=== PATIENT | male | born 2000 | race Caucasian/White ===

== ENCOUNTER 2022-05-25 09:12 | Emergency (ER) | payer OTHER, SELFPAY ==
[2022-05-25 09:19] VITALS: BP 132/69; PULSE 78; RESP 14; TEMP 36.9; O2SAT 95
--- NOTE | 2022-05-25 09:29 | ED.EAR ---
HPI - Ear Problem General Chief complaint: Ear Stated complaint: Ear infection- tender to the touch Time Seen by Provider: 05/25/22 09:18 Source: patient Mode of arrival: Ambulatory History of Present Illness HPI Narrative: 21-year-old male daily smoker without chronic medical problems presents for evaluation of right ear pain worsening over the night. He denies any injury or trauma. He denies any fever or chills. He states his ear started hurting when he was wearing over the ear headphones playing video games and progressively worsened. He does occasionally use Q-tips but has not recently. He denies any bleeding or drainage. He denies any change in his ability to hear. He has had some nasal congestion, runny nose and sneezing. He is not taken anything for it thus far. He denies chest pain or shortness of breath. He has no nausea, vomiting or diarrhea. He denies any recent swimming Related Data Allergies Allergy/AdvReac Type Severity Reaction Status Date / Time No Known Drug Allergies Allergy Verified 05/25/22 09:26 Review of Systems Review of Systems Narrative: GENERAL: Denies chills, fatigue, malaise, fever, sweats. HEENT: See HPI RESPIRATORY: Denies dyspnea, cough, wheezing, hemoptysis, sputum. CARDIOVASCULAR: Denies chest pain, palpitations, orthopnea, edema, GASTROINTESTINAL: Denies nausea, vomiting, abdominal pain, diarrhea, constipation, melena. : Denies dysuria, frequency, incontinence, hematuria, urinary retention. MUSCULOSKELETAL: denies weakness, joint pain, or bony pain SKIN: Denies rash, skin lesions, or other NEUROLOGIC: Denies weakness, headache, numbness, change in speech, confusion, seizures, incoordination. PSYCHIATRIC: No concerning psychosocial issues. 12 point review of systems is negative except for those stated above Patient History Social History Smoking Status: Current every day smoker Smoking Status: Current every day smoker tobacco type: vaping alcohol intake frequency: holidays/special occasions only Substance Use Type: does not use Exam Narrative Exam Narrative: GEN: AOx3 and in mild distress EYES: Pupils are equal, round, and reactive to light and accommodation. Extraoccular muscles are intact bilaterally. There is no subconjunctival hemorrhage or exudate. ENT: R TM flat, clear, normal view of landmarks, no erythema/bulging/retraction or evidence of perforation. Clear post nasal drip CHEST: Lungs are clear to auscultation bilaterally and free of wheezes, rales, or rhonchi. Heart rate is regular rhythm, there are no murmurs, clicks, rubs, or gallops. There is no chest wall tenderness. ABD: Abdomen is soft and nontender. There is no guarding or rebound. Bowel sounds are normal in all 4 quadrants. There is no mass or organomegaly. EXT: Full painless ROM of all extremities with no loss of sensation or strength. SKIN: Warm, pink, and dry. No erythema or rash Initial Vital Signs Initial Vital Signs: Vital Signs Temperature 98.5 F 05/25/22 09:19 Pulse Rate 78 05/25/22 09:19 Respiratory Rate 14 05/25/22 09:19 Blood Pressure 132/69 05/25/22 09:19 Pulse Oximetry 95 05/25/22 09:19 Oxygen Delivery Method 05/25/22 09:19 Course Vital Signs Vital signs: Vital Signs - 8 hr 05/25/22 09:19 Temperature 98.5 F Pulse Rate 78 Respiratory Rate 14 Blood Pressure 132/69 Pulse Oximetry 95 Oxygen Delivery Method Room Air Discharge Plan Departure Patient Disposition: Home Clinical Impression: Acute otalgia Qualifiers: Laterality: right Qualified Code(s): H92.01 - Otalgia, right ear Activity Restrictions/Additional Instructions: *You have been diagnosed with [right ear pain, as we discussed no evidence of any infection that would benefit from the use of antibiotics] *What to do: *Please consider the use of [id number] anti-inflammatories on a schedule, antihistamines and decongestants such as Sharri D *Please follow up with your primary care provider in 2-3 days, call for an appointment. Let them know you were seen in the Emergency Department and that we ask that you be seen in follow up. We will electronically transmit a record of today's note if your PCP is in our system *If you do not have a primary care provider please contact the [facility] Resource line at [phone]. They will ask some questions about your medical history and help get you set up with a doctor in the community. *Return to Emergency Department if you should have any new, worsening or concerning symptoms
== END 2022-05-25 09:27 | disposition home or self-care (01) ==
PROVIDERS: Emergency Provider Emergency Medicine
DX: H92.01 Otalgia, right ear (principal)
CPT/HCPCS: 99281

== ENCOUNTER 2024-04-02 19:15 | Emergency (ER) | payer OTHER, SELFPAY ==
[2024-04-02 19:30] VITALS: BP 133/67; PULSE 88; RESP 16; TEMP 36.8; O2SAT 96; BMI 30.8
[2024-04-02 19:54] LABS: Add Manual Diff / Slide Review NO; Basophils Absolute Auto 0 /uL (0-100); Basophils Percent Auto 0.5 % (0-2); Eosinophils Absolute Auto 300 /uL (0-450); Eosinophils Percent Auto 2.9 % (2-4); Hematocrit 44.4 % (41-53); Hemoglobin 15.6 g/dL (13.5-17.5); Lymphocytes Absolute Auto 2300 /uL (1100-4500); Lymphocytes Percent Auto 22.6 % (25-40); Mean Corpuscular HGB Conc 35.2 % (30-36); Mean Corpuscular Hemoglobin 29.6 PG (26-34); Monocytes Absolute Auto 800 /uL (0-900); Neutrophils Absolute Auto 6800 /uL (1500-7000); Platelet Count 237 X10^3/uL (150-400); Red Blood Cell Count 5.28 X10^6/uL (4.5-5.9); Red Cell Distribution Width 13.7 % (11.6-14.8); White Blood Cell Count 10.3 X10^3/uL (4.5-11.0)
[2024-04-02 20:12] LABS: Alanine Aminotransferase 20 IU/L (<50); Albumin 4.8 g/dL (3.5-5.0); Albumin Globulin Ratio 1.4 (1.0-2.8); Alkaline Phosphatase 97 U/L (38-126); Aspartate Aminotransferase 25 IU/L (17-59); BUN Creatinine Ratio 21.1 (6-22); Bilirubin Total 0.6 mg/dL (0.2-1.3); Blood Urea Nitrogen 20 mg/dL (9-20); Calcium 9.2 mg/dL (8.4-10.2); Carbon Dioxide 27 mmol/L (22-32); Chloride 106 mmol/L (98-107); Estimated Glomerular Filt Rate > 60 mL/min (>60); Globulin 3.4 g/dL (1.7-4.1); Glucose 104 mg/dL (70-100); HEMOLYSIS 27 (0-50); Lipase 77 U/L (23-300); Potassium 4.3 mmol/L (3.4-5.1); Sodium 139 mmol/L (137-145); Total Protein 8.2 g/dL (6.3-8.2)
--- NOTE | 2024-04-02 23:45 | DI.CT.S_ITS ---
PROCEDURE: CT ABDOMEN PELVIS W CON INDICATIONS: abd left shoulder pain TECHNIQUE: After the administration of intravenous contrast, axial sections acquired from the lung bases to the pubic symphysis. Coronal and sagittal reformats were performed. For radiation dose reduction, the following was used: automated exposure control, adjustment of mA and/or kV according to patient size. COMPARISON: None. FINDINGS: Image quality: Diagnostic Lower chest: Lower lung atelectasis. Mildly patulous distal esophagus, nonspecific Liver: Unremarkable Gallbladder and biliary system: Unremarkable, nondilated Pancreas: No ductal dilation Spleen: No capsular hematoma or discrete laceration. Adrenals: No discrete nodules Kidneys: No solid mass or hydronephrosis Vessels and lymph nodes: The main portal vein is patent. No abdominal aortic aneurysm or pathologic lymph nodes by size criteria Bowel and peritoneum: No evidence of small bowel obstruction. No pathologic ascites or drainable abscess. Prominent mesenteric lymph nodes are present. The appendix is nondilated Body wall: Small fat containing umbilical hernia Pelvis: Bladder is unremarkable. Prostate is not well evaluated on this study. Bones: No acute or suspicious osseous finding. IMPRESSION: No acute abdominal pelvic abnormality. Other findings as above. Dictated by: Richi Catalan M.D. on 04/03/2024 at 0:37 Approved by: Richi Catalan M.D. on 04/03/2024 at 0:42
--- NOTE | 2024-04-02 23:46 | DI.RAD.S_ITS ---
PROCEDURE: XR CHEST 2V INDICATIONS: chest shoulder pain TECHNIQUE: 2 views of the chest were acquired. COMPARISON: None. FINDINGS: Surgical changes and devices: None. Lungs and pleura: Low lung volumes. No dense consolidation or pleural effusion Mediastinum: Normal heart size Bones and chest wall: Unremarkable IMPRESSION: Low lung volumes. No dense consolidation or pleural effusion. Dictated by: Richi Catalan M.D. on 04/03/2024 at 0:14 Approved by: Richi Catalan M.D. on 04/03/2024 at 0:14
[2024-04-02] MEDS: HYDROMORPHONE 0.5 MG INJ IV (23:53)
[2024-04-02] MEDS: ONDANSETRON 4 MG/2 ML INJ IV (23:53)
[2024-04-02 23:56] VITALS: BP 134/81; PULSE 80; RESP 18; O2SAT 98
--- NOTE | 2024-04-03 01:59 | ED_ITS ---
HPI - Abdominal Pain General Chief Complaint: Abdominal Pain Stated Complaint: left shoulder pain Time Seen by Provider: 04/02/24 23:45 Source: patient Mode of arrival: Ambulatory History of Present Illness HPI narrative: 23-year-old male complains of left middle lower abdominal pain onset yesterday 7:00 p.m., no nausea or vomiting, no injury or trauma new activities. No fevers or chills. No loose stools. No black or red stools. Some radiation to the left flank area and left shoulder. No worsening with truncal movements. He has not tried any medications for this. No history of known kidney stones. No pain with urination. No dark urine. No history of prior problems with colitis or diverticulitis, no Crohn's disease or inflammatory bowel disease, no abdominopelvic surgical interventions in the past. Last bowel movement yesterday unremarkable. Related Data Allergies Allergy/AdvReac Type Severity Reaction Status Date / Time No Known Drug Allergies Allergy Verified 04/02/24 19:30 Review of Systems Review of Systems Narrative: See HPI Patient History Social History Smoking Status: Current every day smoker Smoking Status: Current every day smoker tobacco type: vaping alcohol intake frequency: holidays/special occasions only Substance Use Type: does not use Exam Narrative Exam Narrative: GENERAL: Well-developed patient, in mild distress. HEAD: Atraumatic. Normocephalic. EYES: Pupils equal round and reactive. Extraocular motions intact. No scleral icterus. No injection or drainage. ENT: Nose without bleeding, purulent drainage. Throat without erythema, tonsillar hypertrophy or exudate. Airway patent. NECK: Trachea midline. Non tender CARDIOVASCULAR: Regular rate and rhythm without murmurs, gallops, or rubs. RESPIRATORY: Clear to auscultation. Breath sounds equal bilaterally. No wheezes, rales, or rhonchi. GASTROINTESTINAL: Abdomen soft, non-tender, nondistended. EXTREMITIES: No edema or joint tenderness. BACK: Nontender without deformity or crepitance. No flank tenderness. NEURO: AOx3. SKIN: No rash or erythema of visible areas Initial Vital Signs Initial Vital Signs: Vital Signs Temperature 98.3 F 04/02/24 19:30 Pulse Rate 88 04/02/24 19:30 Respiratory Rate 16 04/02/24 19:30 Blood Pressure 133/67 04/02/24 19:30 Pulse Oximetry 96 04/02/24 19:30 Oxygen Delivery Method Room Air 04/02/24 19:30 Course Orders Ordered: ED Orders 04/02/24 23:45 CT abdomen pelvis w con Stat 04/02/24 23:46 XR chest 2V Stat Discontinued Medications Acetaminophen (Acetaminophen 325 Mg Tablet) 650 mg PO NOW ONE Stop: 04/03/24 07:05 Last Admin: 04/03/24 07:08 Dose: 650 mg Documented By: VALENCIA Hydromorphone HCl (Hydromorphone 0.5 Mg Inj) 0.5 mg IV NOW ONE Stop: 04/02/24 23:49 Last Admin: 04/02/24 23:53 Dose: 0.5 mg Documented By: AGUSTIN Ketorolac Tromethamine (Ketorolac 30 Mg/Ml Vial) 15 mg IV NOW ONE Stop: 04/03/24 02:05 Last Admin: 04/03/24 03:30 Dose: 15 mg Documented By: AGUSTIN Ondansetron HCl (Ondansetron 4 Mg/2 Ml Inj) 4 mg IV NOW PRN PRN Reason: Nausea And Vomiting Last Admin: 04/02/24 23:53 Dose: 4 mg Documented By: AGUSTIN Ondansetron HCl (Ondansetron 4 Mg Odt) 4 mg PO NOW PRN PRN Reason: Nausea And Vomiting Vital Signs Vital signs: Vital Signs - 8 hr 04/03/24 03:30 04/03/24 07:01 Pulse Rate 65 62 Respiratory Rate 18 18 Blood Pressure 115/67 120/72 Pulse Oximetry 97 97 Oxygen Delivery Method Room Air Room Air MDM - Abdominal Pain Lab Data Attestation: I reviewed the patient's lab results. 04/02/24 19:39 04/02/24 19:39 Labs: Lab Results 04/02/24 Range/Units 19:39 WBC 10.3 (4.5-11.0) X10^3/uL RBC 5.28 (4.5-5.9) X10^6/uL Hgb 15.6 (13.5-17.5) g/dL Hct 44.4 (41-53) % MCV 84.0 (80-100) fL MCH 29.6 (26-34) PG MCHC 35.2 (30-36) % RDW 13.7 (11.6-14.8) % Plt Count 237 (150-400) X10^3/uL Neut % (Auto) 66.0 (50-75) % Lymph % (Auto) 22.6 L (25-40) % [place] % (Auto) 8.0 (3-14) % Eos % (Auto) 2.9 (2-4) % Baso % (Auto) 0.5 (0-2) % Neut # (Auto) 6800 (5115-8217) /uL Lymph # (Auto) 2300 (3233-3279) /uL Canadian # (Auto) 800 (0-900) /uL Eos # (Auto) 300 (0-450) /uL Baso # (Auto) 0 (0-100) /uL Sodium 139 (137-145) mmol/L Potassium 4.3 (3.4-5.1) mmol/L Chloride 106 (98-107) mmol/L Carbon Dioxide 27 (22-32) mmol/L BUN 20 (9-20) mg/dL Creatinine 0.95 (0.66-1.25) mg/dL Estimated GFR > 60 (>60) mL/min BUN/Creatinine Ratio 21.1 (6-22) Glucose 104 H (70-100) mg/dL Calcium 9.2 (8.4-10.2) mg/dL Total Bilirubin 0.6 (0.2-1.3) mg/dL AST 25 (17-59) IU/L ALT 20 (<50) IU/L Alkaline Phosphatase 97 (38-126) U/L Total Protein 8.2 (6.3-8.2) g/dL Albumin 4.8 (3.5-5.0) g/dL Globulin 3.4 (1.7-4.1) g/dL Albumin/Globulin Ratio 1.4 (1.0-2.8) Lipase 77 (23-300) U/L Imaging Data Chest x-ray: Radiologist's Impression: [address] [address] XRay Report Signed Patient: Nick Dixon MR#: [id number] : 2000 Acct:[id number] Age/Sex: 23 / M Date of Service: 04/02/24 Loc: ED Accession Number: [id number] Procedure: XR chest 2V Ordering Provider: Nick Madrigal MD PROCEDURE: XR CHEST 2V INDICATIONS: chest shoulder pain TECHNIQUE: 2 views of the chest were acquired. COMPARISON: None. FINDINGS: Surgical changes and devices: None. Lungs and pleura: Low lung volumes. No dense consolidation or pleural effusion Mediastinum: Normal heart size Bones and chest wall: Unremarkable IMPRESSION: Low lung volumes. No dense consolidation or pleural effusion. Dictated by: Richi Catalan M.D. on 04/03/2024 at 0:14 Approved by: Richi Catalan M.D. on 04/03/2024 at 0:14 CT scan - abdomen/pelvis: Radiologist's Impression: [place] [address] CT Scan Report Signed Patient: Nick Dixon MR#: [id number] : 2000 Acct:[id number] Age/Sex: 23 / M Date of Service: 04/02/24 Loc: ED Accession Number: [id number] Procedure: CT abdomen pelvis w con Ordering Provider: Nick Madrigal MD PROCEDURE: CT ABDOMEN PELVIS W CON INDICATIONS: abd left shoulder pain TECHNIQUE: After the administration of intravenous contrast, axial sections acquired from the lung bases to the pubic symphysis. Coronal and sagittal reformats were performed. For radiation dose reduction, the following was used: automated exposure control, adjustment of mA and/or kV according to patient size. COMPARISON: None. FINDINGS: Image quality: Diagnostic Lower chest: Lower lung atelectasis. Mildly patulous distal esophagus, nonspecific Liver: Unremarkable Gallbladder and biliary system: Unremarkable, nondilated Pancreas: No ductal dilation Spleen: No capsular hematoma or discrete laceration. Adrenals: No discrete nodules Kidneys: No solid mass or hydronephrosis Vessels and lymph nodes: The main portal vein is patent. No abdominal aortic aneurysm or pathologic lymph nodes by size criteria Bowel and peritoneum: No evidence of small bowel obstruction. No pathologic ascites or drainable abscess. Prominent mesenteric lymph nodes are present. The appendix is nondilated Body wall: Small fat containing umbilical hernia Pelvis: Bladder is unremarkable. Prostate is not well evaluated on this study. Bones: No acute or suspicious osseous finding. IMPRESSION: No acute abdominal pelvic abnormality. Other findings as above. Dictated by: Richi Catalan M.D. on 04/03/2024 at 0:37 Approved by: Richi Catalan M.D. on 04/03/2024 at 0:42 [facility] Narrative Medical decision making narrative: 23-year-old with left side abdominal pain, left flank pain, also some left shoulder discomfort. No tenderness on exam. Blood tests unremarkable. CT abdomen and pelvis showed no acute changes. Chest x-ray additionally ordered, showed no acute changes, also visualized field of left shoulder unremarkable. Seemed more comfortable after Toradol. Noted by nursing to be walking around the department in no distress. Advised [id number] ibuprofen/Tylenol as needed for pain control. Follow up with regular provider advised. Return precautions discussed. Discharge Plan Departure Patient Disposition: Home Clinical Impression: Abdominal pain, Acute shoulder pain Instructions: DI for Abdominal Pain-Adult Activity Restrictions/Additional Instructions: Left-sided abdominal pain, shoulder pain of unclear cause. CT abdomen and pelvis imaging showed no acute changes. Chest x-ray including views of the left shoulder also unremarkable. Seemed to respond to Toradol. Consider taking [id number] ibuprofen. Recheck with your regular doctor symptoms persist in the next 24 to 48 hours. Return to this/nearest emergency department for any change worsening symptoms or any concerns prior Referrals: ProviderSavita [Primary Care Provider] - Stand Alone Forms: Patient Portal/API
[2024-04-03 03:30] VITALS: BP 115/67; PULSE 65; RESP 18; O2SAT 97
[2024-04-03] MEDS: KETOROLAC 30 MG/ML VIAL 15 MG IV (03:30)
[2024-04-03 07:01] VITALS: BP 120/72; PULSE 62; RESP 18; O2SAT 97
--- NOTE | 2024-04-03 07:02 | PC.NURSE ---
Pt ambulated to bathroom independently with no issues, pt able to tolerate PO intake, pt reports of left shoulder pain at this time.
[2024-04-03] MEDS: ACETAMINOPHEN 325 MG TABLET 650 MG PO (07:08)
== END 2024-04-03 07:13 | disposition home or self-care (01) ==
PROVIDERS: Emergency Provider Emergency Medicine
DX: R10.32 Left lower quadrant pain (principal); M25.512 Pain in left shoulder
CPT/HCPCS: 71046; 74177; 80053; 83690; 85025; 96374; 96375; 99284; J1170; J1885; J2405; Q9967

== ENCOUNTER 2024-04-04 08:52 | Emergency (ER) | payer OTHER, SELFPAY ==
[2024-04-04 08:56] VITALS: BP 120/78; PULSE 78; RESP 18; TEMP 36.8; O2SAT 99; BMI 30.8
--- NOTE | 2024-04-04 09:23 | EKG_ITS ---
[address] [address] Test Date: 2024-04-04 Pat Name: Nick Dixon Department: Room: Gender: Male [employer]: IBIS : 2000 Requested By: Order Number: [id number] Reading MD: Shmuel Maldonado Measurements Intervals [place] Rate: 69 P: 31 [place]: 150 QRS: 37 QRSD: 92 T: 51 QT: 368 QTc: 394 Interpretive Statements Normal sinus rhythm Electronically Signed On 04-04-2024 18:26:25 PDT by Shmuel Maldonado
[2024-04-04 09:37] LABS: Bacteria Urine None Seen; Culture Indicated Urine Cult Not Indicated; Mucus Urine 1+ (Negative); RBC Urine 0-1/HPF (0-5/HPF); Squamous Epithelial Cell Urine 0-1 /HPF (0-5/HPF); Urine Volume 10mL (spun); WBC Urine None Seen (0-5/HPF)
[2024-04-04 09:39] LABS: Add Manual Diff / Slide Review NO; Basophils Absolute Auto 0 /uL (0-100); Basophils Percent Auto 0.6 % (0-2); Eosinophils Absolute Auto 200 /uL (0-450); Eosinophils Percent Auto 2.5 % (2-4); Hematocrit 42.6 % (41-53); Hemoglobin 14.8 g/dL (13.5-17.5); Lymphocytes Absolute Auto 2100 /uL (1100-4500); Lymphocytes Percent Auto 27.3 % (25-40); Mean Corpuscular HGB Conc 34.7 % (30-36); Mean Corpuscular Hemoglobin 29.8 PG (26-34); Mean Corpuscular Volume 85.7 fL (80-100); Monocytes Absolute Auto 600 /uL (0-900); Neutrophils Absolute Auto 4800 /uL (1500-7000); Neutrophils Percent Auto 61.6 % (50-75); Platelet Count 196 X10^3/uL (150-400); Red Blood Cell Count 4.97 X10^6/uL (4.5-5.9); Red Cell Distribution Width 13.4 % (11.6-14.8); White Blood Cell Count 7.8 X10^3/uL (4.5-11.0)
[2024-04-04 09:51] LABS: Alanine Aminotransferase 20 IU/L (<50); Albumin 4.6 g/dL (3.5-5.0); Albumin Globulin Ratio 1.4 (1.0-2.8); Alkaline Phosphatase 83 U/L (38-126); Aspartate Aminotransferase 23 IU/L (17-59); BUN Creatinine Ratio 18.3 (6-22); Bilirubin Total 0.7 mg/dL (0.2-1.3); Blood Urea Nitrogen 21 mg/dL (9-20); Calcium 9.1 mg/dL (8.4-10.2); Carbon Dioxide 27 mmol/L (22-32); Chloride 108 mmol/L (98-107); Estimated Glomerular Filt Rate > 60 mL/min (>60); Globulin 3.3 g/dL (1.7-4.1); Glucose 112 mg/dL (70-100); HEMOLYSIS 15 (0-50); Lipase 53 U/L (23-300); Potassium 4.5 mmol/L (3.4-5.1); Sodium 139 mmol/L (137-145); Total Protein 7.9 g/dL (6.3-8.2)
--- NOTE | 2024-04-04 11:03 | ED.GENADULT ---
HPI - General Adult General Chief complaint: Abdominal Pain Stated complaint: Still having Stomach pain Time Seen by Provider: 04/04/24 10:27 Source: patient Mode of arrival: Ambulatory History of Present Illness HPI narrative: 23-year-old gentleman presents with continued abdominal pain. Was seen in the emergency department on April 02, complaining that he had had pain since 7:00 p.m. on April 01 through the majority of his abdomen not associated with nausea or vomiting. Workup and CT scan at that time was unremarkable. Presents today stating he still has not had a bowel movement and the pain is now localizing to the periumbilical area, increasing in intensity coming in waves. Describes it as an 8/10. [place] told to come in for re-evaluation. He notes he would who is passing gas. No fevers, or vomiting. No chest pain or palpitations. Related Data Previous Rx's Medication Instructions Recorded diazepam 5 mg tablet 5 mg PO BEDTIME PRN muscle spasm 04/04/24 #14 tabs dicyclomine 20 mg tablet 20 mg PO TID PRN abdominal pain 04/04/24 #20 tabs Allergies Allergy/AdvReac Type Severity Reaction Status Date / Time No Known Drug Allergies Allergy Verified 04/02/24 19:30 Review of Systems Review of Systems Narrative: Pertinent positive and negative findings as per HPI Patient History Social History Smoking Status: Current every day smoker Smoking Status: Current every day smoker tobacco type: vaping alcohol intake frequency: holidays/special occasions only Substance Use Type: does not use Exam Initial Vital Signs Initial Vital Signs: Vital Signs Temperature 98.2 F 04/04/24 08:56 Pulse Rate 78 04/04/24 08:56 Respiratory Rate 18 04/04/24 08:56 Blood Pressure 120/78 04/04/24 08:56 Pulse Oximetry 99 04/04/24 08:56 Oxygen Delivery Method Room Air 04/04/24 08:56 General: Healthy appearing, significant pain with rhythmic rolling abdominal contractions causing him to wince in pain. He is able to give a complete and coherent history HEENT: Moist mucous membranes, normal sclera with reactive pupils, Respiratory: Lungs are clear to auscultation, no wheezing no rales no rhonchi. Full and symmetrical air movement Cardiac: Regular rate and rhythm no murmurs no bruits Abdomen: Mild distention, tenderness in the left upper quadrant with some guarding in the left upper to epigastrium area. Skin: Pale but otherwise Warm and dry, no rashes Neurologic: Grossly neurologically intact with no obvious asymmetries or abnormalities Extremities: No trauma, well perfused Psych: Cooperative, appropriate insight and affect Course Orders Ordered: ED Orders 04/04/24 09:02 EKG-12 Lead Stat 04/04/24 09:11 Urine Microscopic Stat 04/04/24 09:24 Complete Blood Count AUTO DIFF Stat Comprehensive Metabolic Panel Stat Lipase Stat 04/04/24 12:00 CT abdomen pelvis w con Stat Hydromorphone HCl (Hydromorphone 0.5 Mg Inj) 0.5 mg IV Q15MIN PRN PRN Reason: Pain, Last Admin: 04/04/24 12:36 Dose: 0.5 mg Documented By: Admin: 04/04/24 11:35 Dose: 0.5 mg Documented By: BINA Ondansetron HCl (Ondansetron 4 Mg/2 Ml Inj) 4 mg IV NOW PRN PRN Reason: Nausea And Vomiting Ondansetron HCl (Ondansetron 4 Mg Odt) 4 mg PO NOW PRN PRN Reason: Nausea And Vomiting Discontinued Medications Sodium Chloride (Normal Saline 0.9%) 1,000 mls @ 1,000 mls/hr IV BOLUS ONE Stop: 04/04/24 12:17 Last Infusion: 04/04/24 12:29 Dose: Infused Documented By: Admin: 04/04/24 11:33 Dose: 1,000 mls/hr Documented By: BINA Vital Signs Vital signs: Vital Signs - 8 hr 04/04/24 08:56 04/04/24 13:45 Temperature 98.2 F Pulse Rate 78 67 Respiratory Rate 18 16 Blood Pressure 120/78 115/75 Pulse Oximetry 99 100 Oxygen Delivery Method Room Air Medical Decision Making Lab Data 04/04/24 09:24 04/04/24 09:24 Labs: Lab Results 04/04/24 04/04/24 Range/Units 09:11 09:24 WBC 7.8 (4.5-11.0) X10^3/uL RBC 4.97 (4.5-5.9) X10^6/uL Hgb 14.8 (13.5-17.5) g/dL Hct 42.6 (41-53) % MCV 85.7 (80-100) fL MCH 29.8 (26-34) PG MCHC 34.7 (30-36) % RDW 13.4 (11.6-14.8) % Plt Count 196 (150-400) X10^3/uL Neut % (Auto) 61.6 (50-75) % Lymph % (Auto) 27.3 (25-40) % [place] % (Auto) 8.0 (3-14) % Eos % (Auto) 2.5 (2-4) % Baso % (Auto) 0.6 (0-2) % Neut # (Auto) 4800 (4817-0322) /uL Lymph # (Auto) 2100 (2327-1383) /uL [place] # (Auto) 600 (0-900) /uL Eos # (Auto) 200 (0-450) /uL Baso # (Auto) 0 (0-100) /uL Sodium 139 (137-145) mmol/L Potassium 4.5 (3.4-5.1) mmol/L Chloride 108 H (98-107) mmol/L Carbon Dioxide 27 (22-32) mmol/L BUN 21 H (9-20) mg/dL Creatinine 1.15 (0.66-1.25) mg/dL Estimated GFR > 60 (>60) mL/min BUN/Creatinine Ratio 18.3 (6-22) Glucose 112 H (70-100) mg/dL Calcium 9.1 (8.4-10.2) mg/dL Total Bilirubin 0.7 (0.2-1.3) mg/dL AST 23 (17-59) IU/L ALT 20 (<50) IU/L Alkaline Phosphatase 83 (38-126) U/L Total Protein 7.9 (6.3-8.2) g/dL Albumin 4.6 (3.5-5.0) g/dL Globulin 3.3 (1.7-4.1) g/dL Albumin/Globulin Ratio 1.4 (1.0-2.8) Lipase 53 (23-300) U/L Urine RBC 0-1/hpf (0-5/HPF) Urine WBC None seen (0-5/HPF) Ur Squamous Epith Cells 0-1 /hpf (0-5/HPF) Urine Bacteria None seen (None) Urine Mucus 1+ H (Negative) Ur Culture Indicated? Cult not indicated Vol Urine Centrifuged 10ml (spun) Urine Dip Bedside Urine Glucose Negative Bedside Urine Bilirubin - Negative Bedside Urine Ketone - Negative Urine Specific [place] 1.010 Bedside Urine Occult Blood - Negative Bedside Urine pH 6.0 Bedside Urine Protein +/- 15 Bedside Urine Urobilinogen - Negative Bedside Urine Nitrite - Negative Bedside Urine Leukocytes - Negative Esterase Point of care testing: Urine Dip Bedside Urine Glucose Negative Bedside Urine Bilirubin - Negative Bedside Urine Ketone - Negative Urine Specific [place] 1.010 Bedside Urine Occult Blood - Negative Bedside Urine pH 6.0 Bedside Urine Protein +/- 15 Bedside Urine Urobilinogen - Negative Bedside Urine Nitrite - Negative Bedside Urine Leukocytes - Negative Esterase Imaging Data CT scan - abdomen/pelvis: Radiologist's Impression: PROCEDURE: CT ABDOMEN PELVIS W CON INDICATIONS: abd pain TECHNIQUE: After the administration of intravenous contrast, axial sections acquired from the lung bases to the pubic symphysis. Coronal and sagittal reformats were performed. For radiation dose reduction, the following was used: automated exposure control, adjustment of mA and/or kV according to patient size. COMPARISON: [facility], CT, CT ABDOMEN PELVIS W CON, 04/03/2024, 0:02. FINDINGS: Image quality: Diagnostic. Lower Chest: No significant findings. ABDOMEN: Liver: No solid mass. Gallbladder: No radiopaque gallstones or wall thickening. Biliary ducts: No biliary dilation. Pancreas: No ductal dilation. Spleen: Spleen is mildly enlarged, measuring 12.5 x 14.3 x 4.3 centimeters, volume of 476 milliliter. Adrenal Glands: No adrenal nodules. Kidneys and Ureters: No hydronephrosis. No solid mass. No complex renal cystic lesion which requires follow up. Stomach and Bowel: Normal colonic caliber, without significant wall thickening. Normal appendix. No diverticular disease. Peritoneum: No abnormal intraperitoneal fluid. No free air. Ventral Wall: No significant ventral hernia. Abdominal Nodes: No retroperitoneal or mesenteric adenopathy by size criteria. Vessels: Aorta and inferior vena cava are normal in size. PELVIS: Pelvic Organs: Unremarkable. Bladder: No bladder wall thickening, accounting for underdistention. Pelvic Nodes: No enlarged lymph nodes. Miscellaneous: No inguinal hernias are seen. Bones: No aggressive osseous abnormality. IMPRESSION: No acute abnormality. Normal appendix, normal gallbladder, no significant diverticular disease and no nephrolithiasis. Mild splenomegaly. In this age group, mononucleosis is a consideration. Differential includes underlying liver disease or lymphoma. Dictated by: Antelmo Alston M.D. on 04/04/2024 at 11:35 MDM Narrative Medical decision making narrative: CC: Continued abdominal pain from April 01 Complicating co-morbidities: Otherwise healthy Data collected from: patient Social determinants of health that may influence the patients condition: Currently active [employer] Medical records reviewed: Reviewed ER notes including CT scan from April 02. CT scan at that time did not suggest significant stool overload and was read as unremarkable by the radiologist Differential considered: Pancreatitis, bowel obstruction, internal hernia, constipation Exam documented above, pertinent findings include: Patient appears to be in moderate pain. He has some guarding in the left upper to periumbilical area but no rebound. No flank pain Lab Test results independently reviewed as above. Pertinent findings: CBC does not show leukocytosis or anemia Chemistries are unremarkable Lipase at 53 Urine shows no significant abnormalities Imaging studies independently reviewed: Given recurrent pain and otherwise benign lab studies, in shared decision-making with the patient we are going to repeat his CT scan to see if there are any new findings that might explain his overall pain. CT scan is unremarkable with suggestion of mild splenomegaly which does not correlate with the degree of pain that he is experiencing nor with his history or labs Consultations: Treatments: Fluids, Zofran, Dilaudid Re-evaluations: Discussion: Discharge Plan Departure Patient Disposition: Home Clinical Impression: Musculoskeletal back pain Abdominal pain Qualifiers: Abdominal location: upper abdomen, unspecified Qualified Code(s): R10.10 - Upper abdominal pain, unspecified Instructions: DI for Abdominal Pain-Adult Activity Restrictions/Additional Instructions: Thank you for coming in today I am sorry that you are continuing to suffer with this pain. Your workup was very reassuring. There is no evidence of infection, masses or tumors, significant constipation, significant musculoskeletal injury, back problems. I am going to have you try to different medications. One is called Bentyl/dicyclomine. This is essentially a muscle relaxant for your guts. If the pain is coming from gut cramping this will be helpful. There are minimal side effects and it is worth trying. If it is helpful you can continue with this is needed, if it does not help, do not take a medication that has not doing anything I am also going to give you a muscle relaxer, diazepam/Valium. You can use this in the evenings to help you sleep laying flat. He may find that a couple of evenings of solid sleep helps your body heal itself. Prescriptions have been electronically transmitted to [facility] in [place] If you find that you are having new symptoms, vomiting, any blood in your stool, fevers etc. it would be appropriate to return to the ER Prescriptions: New dicyclomine 20 mg tablet 20 mg PO TID PRN (Reason: abdominal pain) Qty: 20 1RF diazepam 5 mg tablet 5 mg PO BEDTIME PRN (Reason: muscle spasm) Qty: 14 0RF Referrals: ProviderSavita [Primary Care Provider] - Stand Alone Forms: Patient Portal/API
[2024-04-04] MEDS: SODIUM CHLORIDE 0.9% 1,000 ML 1000 ML IV (11:33)
[2024-04-04] MEDS: HYDROMORPHONE 0.5 MG INJ IV ×2 (11:35→12:36)
--- NOTE | 2024-04-04 12:00 | DI.CT.S_ITS ---
PROCEDURE: CT ABDOMEN PELVIS W CON INDICATIONS: abd pain TECHNIQUE: After the administration of intravenous contrast, axial sections acquired from the lung bases to the pubic symphysis. Coronal and sagittal reformats were performed. For radiation dose reduction, the following was used: automated exposure control, adjustment of mA and/or kV according to patient size. COMPARISON: [facility], CT, CT ABDOMEN PELVIS W CON, 04/03/2024, 0:02. FINDINGS: Image quality: Diagnostic. Lower Chest: No significant findings. ABDOMEN: Liver: No solid mass. Gallbladder: No radiopaque gallstones or wall thickening. Biliary ducts: No biliary dilation. Pancreas: No ductal dilation. Spleen: Spleen is mildly enlarged, measuring 12.5 x 14.3 x 4.3 centimeters, volume of 476 milliliter. Adrenal Glands: No adrenal nodules. Kidneys and Ureters: No hydronephrosis. No solid mass. No complex renal cystic lesion which requires follow up. Stomach and Bowel: Normal colonic caliber, without significant wall thickening. Normal appendix. No diverticular disease. Peritoneum: No abnormal intraperitoneal fluid. No free air. Ventral Wall: No significant ventral hernia. Abdominal Nodes: No retroperitoneal or mesenteric adenopathy by size criteria. Vessels: Aorta and inferior vena cava are normal in size. PELVIS: Pelvic Organs: Unremarkable. Bladder: No bladder wall thickening, accounting for underdistention. Pelvic Nodes: No enlarged lymph nodes. Miscellaneous: No inguinal hernias are seen. Bones: No aggressive osseous abnormality. IMPRESSION: No acute abnormality. Normal appendix, normal gallbladder, no significant diverticular disease and no nephrolithiasis. Mild splenomegaly. In this age group, mononucleosis is a consideration. Differential includes underlying liver disease or lymphoma. Dictated by: Antelmo Alston M.D. on 04/04/2024 at 11:35 Approved by: Antelmo Alston M.D. on 04/04/2024 at 11:41
[2024-04-04 13:45] VITALS: BP 115/75; PULSE 67; PULSE 69; RESP 16; O2SAT 100; O2SAT 95
[2024-04-04 14:00] VITALS: BP 99/73; PULSE 75; O2SAT 98
[2024-04-04] MEDS: OXYCODONE/ACETAMINOPHEN 5/325 TABLET 1 TAB PO (14:24)
== END 2024-04-04 14:30 | disposition home or self-care (01) ==
PROVIDERS: Emergency Provider Emergency Medicine
DX: R10.10 Upper abdominal pain, unspecified (principal); M54.9 Dorsalgia, unspecified
CPT/HCPCS: 36415; 74177; 80053; 81003; 81015; 83690; 85025; 93005; 96361; 96374; 99284; J1170; Q9967